=== PATIENT | female | born 1980 | race Caucasian/White ===

== ENCOUNTER 2017-04-28 20:55 | Emergency (ER) | payer OTHER ==
[2017-04-28 21:56] VITALS: BP 118/57
--- NOTE | 2017-04-28 22:03 | UC ---
Abdominal Pain Female HPI - HPI Summary HPI Summary: Pt presents with c/o of abdominal pain, fever and diarrhea X 3 days. Pt reports that she completed a 7 day prescription of Keflex 500 mg PO Q12H and began a prescription of Augmentin on 04/25/17 Q12h. Pt began having body aches, fever, abdominal pain ~ 3 days ago. Pt states that she came home from work today and took her temperature and noted it was 103 F Pt aslo reports taht she has had worsening abdominal pain and diarrhea that is "horribly smelly" - History of Current Complaint Chief Complaint: UCGI Stated Complaint: DIARRHEA FEVER HEADACHE Time Seen by Provider: 04/28/17 21:27 Hx Obtained From: Patient Hx Last Menstrual Period: about 3 weeks ago ?: No Onset/Duration: Gradual Onset, Lasting Days, Worse Since - onset Timing: Constant Severity Initially: Mild Severity Currently: Moderate Location: Diffuse Radiates: No Character: Colicy, Cramping, Sharp Aggravating Factor(s): Food Alleviating Factor(s): Nothing Associated Signs and Symptoms: Positive: Fever, Diarrhea Allergies/Adverse Reactions: Allergies Allergy/AdvReac Type Severity Reaction Status Date / Time Clarithromycin [From Biaxin] Allergy Abdominal Verified 04/28/17 21:16 Pain Home Medications: Home Medications Amoxicillin/Clavulanate TAB* [Augmentin TAB 875*] 875 mg PO BID 04/28/17 [ History Confirmed 04/28/17] O C 1 tab PO BEDTIME 04/28/17 [History Confirmed 04/28/17] PMH/Surg Hx/FS Hx/Imm Hx Previously Healthy: Yes - Surgical History Surgical History: Yes Surgery Procedure, Year, and Place: [facility] - Family History Known Family History: Positive: Cardiac Disease - Social History Occupation: Employed Full-time Lives: With Family Alcohol Use: Occasionally Substance Use Type: None Smoking Status (MU): Never Smoked Tobacco Have You Smoked in the Last Year: No Review of Systems Constitutional: Fever, Chills, Fatigue Skin: Negative Eyes: Negative ENT: Negative Respiratory: Negative Cardiovascular: Negative Gastrointestinal: Abdominal Pain, Diarrhea Genitourinary: Negative Motor: Negative Neurovascular: Negative Musculoskeletal: Myalgia Neurological: Headache Psychological: Negative Is Patient Immunocompromised?: No All Other Systems Reviewed And Are Negative: Yes Physical Exam Triage Information Reviewed: Yes Appearance: Ill-Appearing Vital Signs: Initial Vital Signs Temp 99.4 F 04/28/17 20:59 Pulse 96 04/28/17 20:59 Resp 18 04/28/17 20:59 BP 120/50 04/28/17 20:59 Vital Signs Reviewed: Yes Eye Exam: Normal Neck exam: Normal Respiratory Exam: Normal Cardiovascular Exam: Normal Abdominal Exam: Other Abdomen Description: Positive: Other: - generalized tenderness Bowel Sounds: Positive: Present Musculoskeletal Exam: Normal Neurological Exam: Normal Psychological Exam: Normal Skin Exam: Normal Abd Pain Female Course/Dx - Course Course Of Treatment: I disdcussed withthe pt my concerns about the length of time that she has been taking antibiotics and the onset of foul smelling diarrhea and fever for possible C-difficile. I recommended that she go to the closest ER for further evaluation and testing. Pt verbalized understanding and agreed to plan of care. - Differential Dx/Diagnosis Differential Diagnosis: Diverticulitis, Other - Gastroenteritis C-Difficile Provider Diagnoses: Abdominal pain. C-Difficile- ? - Physician Notification/Consults Discussed Care of Patient With: Dr. Navarrete at [facility] - Pt accepted by Dr. Navarrete Time Discussed With Above Provider: 22:04 Discharge - Discharge Plan Condition: Stable Disposition: HOME Patient Education Materials: Fever in Adults (ED), Acute Diarrhea (ED), Abdominal Pain (ED) Referrals: Jessie Sandoval MD [Primary Care Provider] - If Needed Additional Instructions: It is recommended that you go to the closest Emergency Room for immediate evaluation. Your exam has revealed concern for an infection called Clostridium Difficile.
== END 2017-04-28 22:07 | disposition home or self-care (01) ==
LOC: UCCORT 20:55
DX: R10.9 Unspecified abdominal pain (principal); R19.7 Diarrhea, unspecified; Z88.1 Allergy status to other antibiotic agents
CPT/HCPCS: 99212; G0463

== ENCOUNTER 2017-10-15 09:05 | Emergency (ER) | payer OTHER ==
[2017-10-15 09:44] VITALS: BP 119/67
--- NOTE | 2017-10-15 09:52 | UC ---
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 HAS BEEN LIMPING - History of Current Complaint Chief Complaint: UCLowerExtremity Stated Complaint: LEFT LEG INJURY Time Seen by Provider: 10/15/17 09:11 Hx Obtained From: Patient Hx Last Menstrual Period: 09/28/17 ?: No Onset/Duration: Sudden Onset, Lasting Days - 1, Still Present Severity Initially: Moderate Severity Currently: Moderate Pain Intensity: 4 Aggravating Factor(s): Standing, Ambulation Able to Bear Weight: Yes - Allergies/Home Medications Allergies/Adverse Reactions: Allergies Allergy/AdvReac Type Severity Reaction Status Date / Time clarithromycin [From Biaxin] AdvReac Abdominal Verified 10/15/17 09:53 Pain Home Medications: Home Medications Ibuprofen [Advil] 800 mg PO ONCE PRN 10/15/17 [History Confirmed 10/15/17] Norethindrone-E.estradiol-Iron [Minastrin 24 Fe 1-20 mg-Mcg(24)] 1 chw PO DAILY 10/15/17 [History Confirmed 10/15/17] Sertraline* [Zoloft*] 200 mg PO BEDTIME 10/15/17 [History Confirmed 10/15/17] PMH/Surg Hx/FS Hx/Imm Hx Respiratory History: Asthma Psychological History: Anxiety - Surgical History Surgical History: Yes Surgery Procedure, Year, and Place: [facility] - Family History Known Family History: Positive: Cardiac Disease - Social History Alcohol Use: Occasionally Substance Use Type: None Smoking Status (MU): Never Smoked Tobacco Have You Smoked in the Last Year: No Review of Systems Constitutional: Negative Skin: Negative Eyes: Negative ENT: Negative Respiratory: Negative Cardiovascular: Negative Is Patient Immunocompromised?: No All Other Systems Reviewed And Are Negative: Yes Physical Exam Triage Information Reviewed: Yes Appearance: Well-Appearing, No Pain Distress, Well-Nourished Vital Signs: Initial Vital Signs Temp 98.9 F 10/15/17 09:33 Pulse 78 10/15/17 09:33 Resp 16 10/15/17 09:33 BP 119/67 10/15/17 09:33 Pulse Ox 99 10/15/17 09:33 Vital Signs Reviewed: Yes Eye Exam: Normal Eyes: Positive: Conjunctiva Clear ENT: Positive: Normal ENT inspection, Hearing grossly normal, Pharynx normal Neck: Positive: Supple, Nontender, No Lymphadenopathy Respiratory: Positive: Chest non-tender, Lungs clear, Normal breath sounds Cardiovascular: Positive: RRR, No Murmur, Pulses Normal Musculoskeletal: Positive: Other: - LEFT LOWER LEG : NO SWELLING, NO ERYTHEMA, + TENDERNESS DISTAL TIBIA, LEFT ANKLE, NO TEDNERENSS, NO SWELLINGN , GOOD ROM Skin Exam: Normal Diagnostics - Laboratory Diagnostic Studies Completed/Ordered: xray left lower leg : no fracture seen Lower Extremity Course/Dx - Differential Dx/Diagnosis Provider Diagnoses: CONTUSION LEFT LOWER LEG Discharge - Discharge Plan Condition: Stable Disposition: HOME Patient Education Materials: Contusion in Adults (ED) Referrals: Jessie Sandoval MD [Primary Care Provider] - 7 Days Additional Instructions: normal xray of left lower leg cont with rest, ice, elevation, take Ibuprofen 600 mg every 6 hrs as needed for pain and inflammation use crutches for few days follow up with your pcp in 7 days
--- NOTE | 2017-10-15 10:52 | RAD ---
Indication: Medial left lower leg pain after soccer injury Comparison: None. Technique: AP and lateral views left lower leg. Report: The visualized bones are adequately corticated and well aligned. There is no acute fracture, dislocation or other focal abnormality. The soft tissues appear grossly normal. IMPRESSION: Normal left lower leg radiograph. If the patient's symptoms persist, follow-up imaging is recommended.
== END 2017-10-15 11:02 | disposition home or self-care (01) ==
LOC: UCCORT 09:05
DX: S80.12XA Contusion of left lower leg, initial encounter (principal); W22.8XXA Striking against or struck by other objects, initial encounter; Y93.66 Activity, soccer; Y92.9 Unspecified place or not applicable; Z88.1 Allergy status to other antibiotic agents; F41.9 Anxiety disorder, unspecified
CPT/HCPCS: 99213; G0463

== ENCOUNTER 2018-07-10 08:07 | Emergency (ER) | payer OTHER ==
[2018-07-10] MEDS ORDERED: Ibuprofen TAB* 600 MG PO ONE (08:33)
[2018-07-10] MEDS ORDERED: Phenazopyridine TAB* 100 MG PO ONE (08:33)
[2018-07-10 08:42] VITALS: BP 137/77
--- NOTE | 2018-07-10 13:32 | UC ---
Abdominal Pain Female HPI - HPI Summary HPI Summary: 37 f with c/o abdominal pain, painful urination, buring with urination, L lower back pain x 2-3 days. no fever, chills. 1 year of frequent urination, x 10 a night. h/o catheterizatins as a child- age 8, unsure for what reason. no recent UTIs/ bladder/ kidney problems. + hematuria x 1 - History of Current Complaint Chief Complaint: UCGeneralIllness Stated Complaint: URINARY COMPLAINT Time Seen by Provider: 07/10/18 08:22 Hx Obtained From: Patient Hx Last Menstrual Period: ended 07/04/18 ?: No Onset/Duration: Sudden Onset, Lasting Days Timing: Constant Severity Initially: Moderate Severity Currently: Moderate Pain Intensity: 5 Pain Scale Used: 0-10 Numeric Location: Diffuse - lower abdomen Allergies/Adverse Reactions: Allergies Allergy/AdvReac Type Severity Reaction Status Date / Time clarithromycin [From Biaxin] AdvReac Abdominal Verified 07/10/18 08:42 Pain PMH/Surg Hx/FS Hx/Imm Hx Previously Healthy: Yes - ? catheterizations as a child - Surgical History Surgical History: Yes Surgery Procedure, Year, and Place: LEEP - Family History Known Family History: Positive: Cardiac Disease - Social History Alcohol Use: Occasionally Substance Use Type: None Smoking Status (MU): Never Smoked Tobacco Have You Smoked in the Last Year: No - Immunization History Most Recent Tetanus Shot: UTD Review of Systems All Other Systems Reviewed And Are Negative: Yes Constitutional: Positive: Fatigue Genitourinary: Positive: Dysuria, Hematuria, Frequency, Urgency, Vaginal/Penile Burning Physical Exam Triage Information Reviewed: Yes Appearance: Well-Appearing, No Pain Distress, Well-Nourished Vital Signs: Initial Vital Signs Temp 98.7 F 07/10/18 08:38 Pulse 78 07/10/18 08:38 Resp 21 07/10/18 08:38 BP 137/77 07/10/18 08:38 Pulse Ox 98 07/10/18 08:38 Vital Signs Reviewed: Yes Eyes: Positive: Conjunctiva Clear Abdomen Description: Negative: CVA Tenderness (R), CVA Tenderness (L) Musculoskeletal: Positive: Strength Intact, ROM Intact Neurological Exam: Normal Psychological Exam: Normal Skin Exam: Normal Abd Pain Female Course/Dx - Course Course Of Treatment: CT- neg for stone, UT + neg , abx given. follow up with PCP , symptoms improved after NSAIDs, pyrdium - Differential Dx/Diagnosis Provider Diagnosis: UTI (urinary tract infection) Discharge - Sign-Out/Discharge Documenting (check all that apply): Patient Departure All imaging exams completed and their final reports reviewed: Yes - Discharge Plan Condition: Good Disposition: HOME Prescriptions: Ciprofloxacin TAB* [Cipro 500 MG TAB*] 500 mg PO BID #10 tab Phenazopyridine TAB* [Pyridium 100 mg TAB*] 100 mg PO TID PRN #15 tab PRN Reason: urinary pain, spasm Patient Education Materials: Urinary Tract Infection in Women (DC) Forms: *Work Release Referrals: Jessie Sandoval MD [Primary Care Provider] - Additional Instructions: - Increase fluid intake - Pyridium for pain - Ibuprofen for pain - Go to ER with Back pain, fever - Bactrim for antibiotics for 5 days - Follow up with Dr Sandoval for sytmpoms, repeat urine testing in 1-2 weeks - Billing Disposition and Condition Condition: GOOD Disposition: Home
--- NOTE | 2018-07-12 15:48 | UC ---
- Progress Note Progress Note: 07/12/2018 Urine culture positive for E.coli. Pt Rx Ciprofloxacin PO Final reports shows sensitivity to Ciprofloxacin PO No change Fanta Cortes PA-C Course/Dx - Diagnoses Provider Diagnoses: UTI (urinary tract infection) Discharge - Sign-Out/Discharge Documenting (check all that apply): Patient Departure - d/c home All imaging exams completed and their final reports reviewed: Yes - Discharge Plan Condition: Good Disposition: HOME Prescriptions: Ciprofloxacin TAB* [Cipro 500 MG TAB*] 500 mg PO BID #10 tab Phenazopyridine TAB* [Pyridium 100 mg TAB*] 100 mg PO TID PRN #15 tab PRN Reason: urinary pain, spasm Patient Education Materials: Urinary Tract Infection in Women (DC) Forms: *Work Release Referrals: Jessie Sandoval MD [Primary Care Provider] - Additional Instructions: - Increase fluid intake - Pyridium for pain - Ibuprofen for pain - Go to ER with Back pain, fever - Bactrim for antibiotics for 5 days - Follow up with Dr Sandoval for sytmpoms, repeat urine testing in 1-2 weeks - Billing Disposition and Condition Condition: GOOD Disposition: Home
== END 2018-07-10 10:20 | disposition home or self-care (01) ==
LOC: UCEAST 08:07
DX: N39.0 Urinary tract infection, site not specified (principal); B96.20 Unspecified Escherichia coli [E. coli] as the cause of diseases classified elsewhere; Z88.1 Allergy status to other antibiotic agents
CPT/HCPCS: 74176; 81003; 84702; 87077; 87086; 87186; 99212; A9270-GY; G0463

== ENCOUNTER 2019-02-14 14:59 | Emergency (ER) | payer OTHER ==
--- OUTSIDE RECORDS SUMMARY | 2019-02-14 15:13 | XMS REPORT | Continuity of Care Document ---
:1980 External Reference #:[id number] Author Name Brina Arenas NP Address [address] [facility] [place] [address] Care Team Providers Name Role Phone Jessie Sandoval M.D. Care Team Information Glass Maker Unavailable Jessie Sandoval M.D. Primary Care Physician Unavailable Payers Date Identification Numbers Payment Provider Subscriber Effective: 2014 Policy Number: [id number] [facility] [employer] Number: [id number] [id number] PayID: [id number] [place] [address] Problems Active Problems Provider Date Vitamin D deficiency Marlen Gomez M.D. 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 Onset: 06/16/2012 Erythroleukoplakia of internal part of James Canchola M.D. Onset: 2015 mouth Recurrent major depressive episodes Jessie Sandoval M.D. Onset: 10/25/2017 Chronic interstitial cystitis Jessie Sandoval M.D. Onset: 01/17/2019 Resolved Problems Chest pain Reyna Dominguez M.D. Onset: 12/03/2011 Resolved: 09/26/2015 Adult health examination Marlen Gomez M.D. Onset: 01/03/2012 Resolved: 09/26/2015 Abdominal pain Marlen Gomez M.D. Onset: 01/03/2012 Resolved: 09/26/2015 Amnesia Marlen Gomez M.D. Onset: 01/03/2012 Resolved: 09/26/2015 Family History Date Family Member(s) Observation Comments : (age 66 Father due to ND Years) Father ND age 56, HTN, hyperlidipemia, mouth cancer Mother Anxiety Mother anxiety, depression,cervical cancer leading her hysterectomy, First Son asthma First Sister Anxiety First Sister twin sister - interstitial cystitis Paternal Grandfather prostate cancer Paternal Grandmother Parkinson's Maternal Grandfather prostate cancer Maternal Grandmother Heart disease Social History Type Date Description Comments Sex Unknown Education Highest level of education completed is a bachelor's degree Living Situation Lives with spouse, son and daughter Diet Diet is healthy and well balanced Pets Household pets include 2 cats 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 Tobacco Use Start: Unknown Patient has never smoked Smoking Status Reviewed: 02/06/19 Patient has never smoked Exercise Exercises regularly, Type/Frequency Current walks 2 miles every day - 30 minutes. Allergies, Adverse Reactions, Alerts Active Allergies Reaction Severity Comments Date Biaxin severe GI upset 03/14/2014 Inactive Allergies codeine gi upset 02/26/2009 Medications Active Medications SIG Qnty Indications Ordering Date Provider Cyclobenzaprine HCL take 1-2 60tabs Brina Carline 11/06/2018 5mg tablets by [facility]as Tablets mouth at night as needed for back spasm Tramadol HCL 1 by mouth 28tabs Brina Carline 11/06/2018 50mg Tablets every 6 hours [facility] Arenas as needed Lorazepam take 1/2 - 1 14tabs F33.9 [facility], 07/26/2018 0.5mg Tablets pill by mouth M.D. up to once daily as needed for anxiety Sertraline HCL take two 60tabs F41.9 [facility], 11/04/2014 100mg Tablets tablets by M.D. mouth every day Ortho-Cyclen (28) 1 by mouth Unknown every day 0.25-35mg-mcg Tablets Vitamin D 1 by mouth Unknown 2000Unit Capsules twice daily Vitamin B 12 Unknown 100mcg Lozenges Probiotic 1 by mouth Unknown Capsules every day Uribel one daily by Unknown 118mg Capsules mouth as needed History Medications Medrol take dose pack as 1units Brina Crowley 11/06/2018 - 4mg TBPK directed [facility] Arenas 02/06/2019 Tamiflu 1 tab by mouth 10caps Jessie Jaime 09/11/2018 - 75mg Capsules every day x10 days M.D. 11/06/2018 Proair HFA take 1-2 puffs 51gm J20.9 Katya Millan 08/12/2017 - prior to exercise MC Hernandez 07/26/2018 108(90Base) mcg/Act and as needed for Aerosol wheezing and difficulty breathing Azithromycin take two by mouth 6tabs J20.9 Katya Millan 08/12/2017 - 250mg as first dose, MC Hernandez 10/24/2017 Tablets then take one by mouth daily until gone Acetaminophen-Codein take one by mouth 20tabs J20.9 Katya Millan 08/12/2017 - e #3 every 6 hours as MC Hernandez 10/25/2017 300-30mg Tablets needed for cough. may take 2 as one dose at bedtime. Acetaminophen-Codein take one by mouth 15tabs J20.9 Katya Millan 07/22/2017 - e #3 every 6 hours as MC Hernandez 08/12/2017 300-30mg Tablets needed for cough. may take 2 as one dose at bedtime. Prednisone take 2 by mouth as 8tabs J20.9 Katya Millan 07/22/2017 - 20mg one dose daily MC Hernandez 08/12/2017 Tablets until gone Thumb Spica Splint For left hand Use 1units Katya Millan 07/06/2017 - during the day, MC Hernandez 07/21/2017 remove at night for 2-4 weeks. Amoxicillin/Clavulan 1 by mouth twice a 20tabs J20.9 LUDIVINA Doty - ate Potassium day for 1 0days 05/26/2017 875-125mg Tablets Doxycycline Hyclate take one by mouth 14caps J01.00 Katya Millan 04/11/2017 - twice daily until MC Hernandez 04/21/2017 100mg Capsules gone Mometasone Furoate 2 sprays in each 17gm J01.00 Katya Millan 04/11/2017 - nostril once daily MC Hernandez 11/06/2018 50mcg/Act Suspension Amoxicillin/Clavulan 1 by mouth twice a 20tabs J20.9 Bela Mcdonald. 06/29/2016 - ate Potassium day for 1 0days Doug Servin 04/10/2017 875-125mg Tablets Diflucan 1 by mouth now. 4tabs J20.9 Renetta Stevens, [employer] 06/29/2016 - 200mg repeat in one week 05/26/2017 Tablets as necessary. Physical Therapy treatment and M54.5 Mar Good, 02/19/2016 - evaluation of Afnp-C 06/28/2016 lower back pain Mouthwash/Gargle equal parts 8Oz B00.2 Mar Good, 12/17/2015 - viscous lidocaine, [facility] 12/22/2015 Liquid maalox and liquid benadryl; 5-10 mls swish, gargle and spit q 4 hrs prn for mouth pain Valtrex 1 po bid x 4 days 8tabs B00.2 Mar Good, 12/17/2015 - 500mg Tablets [facility] 12/21/2015 Doxycycline Hyclate 1 tab twice a day 28tabs J01.90 Jessie Sandoval, 2015 - x 14 days M.D. 11/17/2015 100mg Tablets Fluconazole one tab by mouth 2tabs J01.90 Jessie Sandoval, 09/26/2015 - 150mg once, may repeat M.D. 11/17/2015 Tablets in five days Amoxicillin/Clavulan 1 by mouth twice a 20tabs Russell Donahue M.D. 2015 - ate Potassium day for 1 0days 09/26/2015 875-125mg Tablets Work Excuse pt may return to V43.62x Russell Donahue M.D. 07/15/2015 - work 07/21-07/24. D 09/26/2015 half time only. Work Excuse please excuse 488.82 Russell Donahue M.D. 07/08/2015 - 06/25-07/09/15 07/15/2015 Work Excuse please excuse V43.62x Russell Donahue M.D. 07/02/2015 - 07/09-07/24/15 D 07/15/2015 Orphenadrine Citrate 1 by mouth twice a 30tabs V43.62x Russell Donahue M.D. 09/2014 - ER day as needed for D 08/05/2015 100mg Tablets ER muscle spasm 12HR Naproxen 1 by mouth twice a 30tabs V43.62x Russell Donahue M.D. 07/02/2015 - 500mg day D 08/05/2015 Tablets Lorazepam 1/2 to 1 tab by 60tabs 300.00 Rocher[facility] 03/28/2015 - 1mg Tablets mouth tid prn KAITY HealyP 08/05/2015 anxiety, panic Cheratussin ac 5 milliliters 50ml 786.2 Rochert 12/30/2014 - every [address] [facility] 03/28/2015 100-10mg/5ML Syrup needed cough Tamiflu 1 by mouth twice a 10caps 488.82 Russell Donahue M.D. 08/30/2014 - 75mg Capsules day for 5 days 12/30/2014 Work Excuse please excuse 488.82 Russell Donahue M.D. 08/30/2014 - 08/28-08/30/14 12/30/2014 Diflucan 1 po times 1 day, 2tabs Renetta Stevens [facility] 03/15/2014 - 150mg may repeat in 5-7d 08/30/2014 Tablets Amoxicillin 1 po tid x 10d 30caps 461.[address] [facility] 03/14/2014 - 500mg 08/30/2014 Capsules Ventolin HFA 2 puffs qd-qid sample 461.[address] [facility] 03/14/2014 - 03/28/2015 108(90Base) mcg/Act Aerosol Septra DS 1 po bid 10tabs James Hanson 01/01/2014 - 800-160mg Doug Canchola 02/05/2014 Tablets Vitamin D 1 po qd [facility] 11/13/2013 - [facility] 12/30/2014 Tablets [place] Zofran 1 po q 12h 30tabs [facility] 11/06/2013 - 8mg Tablets [facility] 02/05/2014 [place] Prilosec 1 po qd 90caps Family [facility] 11/06/2013 - 20mg [facility] 02/05/[address] Gregory Hydrocodone/Acetamin 1 po qid prn pain 60tabs [facility] 11/06/2013 - ophen [facility] 02/05/2014 5-325mg Tablets [place] Biaxin take one tablet po 20tabs 466.0 Caitlin 10/29/2013 - 250mg Tablets bid x [address] [facility] 11/08/2013 finish all medication Zoloft 2 by mouth every 60tabs 300.00 Russell Donahue M.D. 06/16/2012 - 100mg Tablets day 11/04/2014 Amoxicillin/Clavulan 1 po bid 20tabs 461.0 Renetta Stevens, [facility] 06/01/2012 - ate Potassium 06/16/2012 875-125mg Tablets Bentyl 1 po every 8 hours 30caps 789.00 Marlen Gomez, 01/03/2012 - 10mg Capsules as needed Doug 07/03/2012 [facility] 02/26/2009 - Misc [facility] 12/26/2009 [place] Zoloft 1 po qd 30tabs [facility] 02/26/2009 - 50mg Tablets [facility] 12/26/2009 [place] 1 po qd [facility] 02/26/2009 - Multiviatamin [facility] 12/03/2011 [place] Expecta PO qd [facility] 02/26/2009 - Capsules [facility] 12/26/2009 [place] Dha/Epa 1 qd Unknown - Liquid Gels 12/03/2011 Zofran 1 po q6h prn 12tabs Unknown - 4mg Tablets 12/03/2011 Ortho Tri-Cyclen take as directed Unknown - 06/29/2016 0.18/0.215/0.25 mg-3 Tablets Zoloft 1 po qd 30tabs Unknown - 50mg Tablets 06/16/2012 Abilify 1 po qd Unknown - 2mg Tablets 10/29/2013 Strattera 1 po qd Unknown - 100mg 02/05/2014 Capsules Albuterol 2 puffs every 4 Unknown - Powder hours prn 02/05/2014 Vitamin Pack daily Unknown - 07/21/2017 Vesicare 1 by mouth every Unknown - 5mg Tablets day 02/06/2019 Giovanni take one tablet by Unknown - 25mg mouth every 02/06/2019 Tablets ER 24HR morning and evening (incontinence) Vital Signs Date Vital Result Comment 02/06/2019 1:50pm BP Systolic 122 mmHg BP Diastolic 64 mmHg Heart Rate 68 /min Body Temperature 98.2 F Respiratory Rate 16 /min Height 69 inches 5'9" Weight 171.00 lb BMI (Body Mass Index) 25.2 kg/m2 11/06/2018 10:37am BP Systolic 118 mmHg BP Diastolic 68 mmHg Heart Rate 68 /min Body Temperature 97.7 F Respiratory Rate 20 /min Weight 169.00 lb 07/26/2018 9:24am BP Systolic 120 mmHg BP Diastolic 60 mmHg Heart Rate 80 /min Body Temperature 98.1 F Respiratory Rate 16 /min Height 69 inches 5'9" Weight 167.00 lb BMI (Body Mass Index) 24.7 kg/m2 10/25/2017 3:32pm BP Systolic 122 mmHg BP Diastolic 70 mmHg Heart Rate 68 /min Respiratory Rate 16 /min Weight 169.00 lb 08/12/2017 3:33pm BP Systolic 122 mmHg BP Diastolic 72 mmHg Heart Rate 85 /min Body Temperature 98.1 F O2 % BldC Oximetry 98 % Weight 169.00 lb 07/22/2017 9:09am BP Systolic 92 mmHg BP Diastolic 50 mmHg Heart Rate 84 /min Body Temperature 99.0 F Height 69 inches 5'9" Weight 168.25 lb With Boots BMI (Body Mass Index) 24.8 kg/m2 07/06/2017 11:30am BP Systolic 122 mmHg BP Diastolic 80 mmHg Heart Rate 66 /min Body Temperature 97.9 F Height 69 inches 5'9" Weight 163.00 lb BMI (Body Mass Index) 24.1 kg/m2 05/26/2017 3:24pm BP Systolic 100 mmHg BP Diastolic 70 mmHg Heart Rate 68 /min Body Temperature 98.1 F Respiratory Rate 18 /min Height 69 inches 5'9" Weight 166.00 lb BMI (Body Mass Index) 24.5 kg/m2 04/11/2017 2:58pm BP Systolic 108 mmHg BP Diastolic 80 mmHg Heart Rate 84 /min Body Temperature 97.9 F Height 69 inches 5'9" Weight 165.50 lb BMI (Body Mass Index) 24.4 kg/m2 06/29/2016 2:19pm BP Systolic 112 mmHg BP Diastolic 60 mmHg Heart Rate 84 /min Body Temperature 98.4 F Height 69 inches 5'9" Weight 156.50 lb BMI (Body Mass Index) 23.1 kg/m2 02/19/2016 4:41pm BP Systolic 110 mmHg BP Diastolic 62 mmHg Heart Rate 84 /min Body Temperature 98.9 F Height 69 inches 5'9" Weight 180.38 lb BMI (Body Mass Index) 26.6 kg/m2 12/26/2015 10:05am BP Systolic 100 mmHg BP Diastolic 60 mmHg Heart Rate 72 /min Body Temperature 97.9 F Respiratory Rate 16 /min Height 69 inches 5'9" Weight 176.00 lb BMI (Body Mass Index) 26.0 kg/m2 12/17/2015 10:59am BP Systolic 100 mmHg BP Diastolic 60 mmHg Heart Rate 60 /min Body Temperature 97.9 F Respiratory Rate 16 /min Height 69 inches 5'9" Weight 173.00 lb BMI (Body Mass Index) 25.5 kg/m2 11/17/2015 4:21pm BP Systolic 110 mmHg BP Diastolic 70 mmHg Heart Rate 60 /min Body Temperature 98.0 F Respiratory Rate 18 /min Height 69 inches 5'9" Weight 173.00 lb BMI (Body Mass Index) 25.5 kg/m2 09/26/2015 11:04am BP Systolic 120 mmHg BP Diastolic 70 mmHg Heart Rate 64 /min Body Temperature 98.2 F Respiratory Rate 16 /min Height 69 inches 5'9" Weight 175.00 lb BMI (Body Mass Index) 25.8 kg/m2 08/05/2015 1:47pm BP Systolic 114 mmHg BP Diastolic 56 mmHg Heart Rate 72 /min Body Temperature 97.7 F Respiratory Rate 16 /min Height 69 inches 5'9" Weight 176.00 lb BMI (Body Mass Index) 26.0 kg/m2 07/15/2015 1:54pm BP Systolic 120 mmHg BP Diastolic 80 mmHg Heart Rate 72 /min Body Temperature 98.0 F Respiratory Rate 18 /min Height 69 inches 5'9" Weight 176.00 lb BMI (Body Mass Index) 26.0 kg/m2 07/08/2015 12:55pm BP Systolic 120 mmHg BP Diastolic 70 mmHg Heart Rate 74 /min Body Temperature 98.1 F Respiratory Rate 16 /min Height 69 inches 5'9" 07/02/2015 1:57pm BP Systolic 110 mmHg BP Diastolic 64 mmHg Heart Rate 64 /min Body Temperature 98.1 F Respiratory Rate 16 /min Height 69 inches 5'9" Weight 175.00 lb BMI (Body Mass Index) 25.8 kg/m2 03/28/2015 3:21pm BP Systolic 104 mmHg BP Diastolic 50 mmHg Heart Rate 64 /min Respiratory Rate 16 /min Height 69 inches 5'9" Weight 169.00 lb BMI (Body Mass Index) 25.0 kg/m2 12/30/2014 1:47pm BP Systolic 114 mmHg BP Diastolic 64 mmHg Heart Rate 60 /min Body Temperature 98.1 F Respiratory Rate 16 /min Height 69 inches 5'9" Weight 162.00 lb BMI (Body Mass Index) 23.9 kg/m2 11/11/2014 11:36am BP Systolic 100 mmHg BP Diastolic 64 mmHg Heart Rate 68 /min Body Temperature 97.7 F Respiratory Rate 16 /min Height 69 inches 5'9" Weight 156.00 lb BMI (Body Mass Index) 23.0 kg/m2 08/30/2014 11:34am BP Systolic 110 mmHg BP Diastolic 60 mmHg Heart Rate 76 /min Body Temperature 98.7 F Respiratory Rate 16 /min Height 69 inches 5'9" Weight 163.00 lb BMI (Body Mass Index) 24.1 kg/m2 03/14/2014 1:46pm BP Systolic 122 mmHg BP Diastolic 76 mmHg Heart Rate 72 /min Body Temperature 98.4 F Respiratory Rate 16 /min Height 69 inches 5'9" Weight 157.25 lb BMI (Body Mass Index) 23.2 kg/m2 02/05/2014 4:44pm BP Systolic 120 mmHg BP Diastolic 62 mmHg Heart Rate 72 /min Body Temperature 98.6 F Respiratory Rate 15 /min Height 69 inches 5'9" Weight 163.00 lb BMI (Body Mass Index) 24.1 kg/m2 01/01/2014 10:05am BP Systolic 120 mmHg BP Diastolic 70 mmHg Heart Rate 64 /min Body Temperature 97.2 F Respiratory Rate 18 /min Height 69 inches 5'9" Weight 160.00 lb BMI (Body Mass Index) 23.6 kg/m2 11/13/2013 4:25pm BP Systolic 108 mmHg BP Diastolic 70 mmHg Heart Rate 84 /min Body Temperature 97.5 F Height 69 inches 5'9" Weight 151.50 lb BMI (Body Mass Index) 22.4 kg/m2 11/08/2013 4:17pm BP Systolic 118 mmHg BP Diastolic 60 mmHg Heart Rate 66 /min Body Temperature 98.5 F Respiratory Rate 16 /min Height 69 inches 5'9" 11/06/2013 4:01pm BP Systolic 146 mmHg BP Diastolic 98 mmHg Heart Rate 102 /min Body Temperature 97.8 F Height 69 inches 5'9" Weight 152.38 lb BMI (Body Mass Index) 22.5 kg/m2 10/29/2013 10:17am BP Systolic 110 mmHg BP Diastolic 70 mmHg Heart Rate 80 /min Body Temperature 98.1 F Respiratory Rate 20 /min O2 % BldC Oximetry 98 % Height 69 inches 5'9" Weight 152.00 lb BMI (Body Mass Index) 22.4 kg/m2 12/08/2012 3:52pm BP Systolic 110 mmHg BP Diastolic 68 mmHg Heart Rate 84 /min Body Temperature 97.6 F Height 69 inches 5'9" Weight 154.25 lb BMI (Body Mass Index) 22.8 kg/m2 07/03/2012 9:35am BP Systolic 120 mmHg BP Diastolic 72 mmHg Heart Rate 72 /min Body Temperature 98.4 F Height 69 inches 5'9" Weight 160.00 lb BMI (Body Mass Index) 23.6 kg/m2 06/16/2012 10:37am BP Systolic 102 mmHg BP Diastolic 68 mmHg Heart Rate 60 /min Body Temperature 97.4 F Height 69 inches 5'9" Weight 156.00 lb BMI (Body Mass Index) 23.0 kg/m2 06/01/2012 11:13am BP Systolic 100 mmHg BP Diastolic 70 mmHg Heart Rate 80 /min Body Temperature 98.2 F Height 69 inches 5'9" Weight 164.00 lb BMI (Body Mass Index) 24.2 kg/m2 01/03/2012 12:23pm BP Systolic 98 mmHg BP Diastolic 58 mmHg Heart Rate 66 /min Body Temperature 98.3 F Height 69 inches 5'9" Weight 165.00 lb BMI (Body Mass Index) 24.4 kg/m2 Right Visual Acuity Distance 20/20 Left Visual Acuity Distance 20/20 12/03/2011 3:47pm BP Systolic 120 mmHg BP Diastolic 70 mmHg Heart Rate 68 /min Body Temperature 97.8 F Height 69 inches 5'9" Weight 165.00 lb BMI (Body Mass Index) 24.4 kg/m2 12/26/2009 2:57pm BP Systolic 120 mmHg BP Diastolic 60 mmHg Heart Rate 80 /min Body Temperature 98.5 F Respiratory Rate 20 /min Weight 168.00 lb 12/26/2009 2:49pm BP Systolic 112 mmHg BP Diastolic 58 mmHg Heart Rate 80 /min Body Temperature 99.3 F Respiratory Rate 12 /min Weight 110.00 lb Results Test Date Facility Test Result H/L Range Note Ua - Micro (a) 07/26/2018 [facility] Appearance clear (607)- - Color yellow Glucose, Urine (Fma/CMC/CTX) negative Bilirubin negative Ketones trace # SP Grav 1.020 Blood negative PH 5.5 Protein negative Urobil 0.2 Nitrite negative Leukocytes (a/CMC/[facility]) small # Hyaline - /Lpf # Granular - /Lpf # WBC (a,[facility]) 8-10 # RBC 0-1 # Mucus - /Lpf # Epith few /Lpf # Bacteria 3+ /Hpf # Amorphous - /Lpf # Crystals, Fluid (a/CMC/CTX) - # Urine Culture And 07/26/2018 [facility] [place] Culture SEE RESULT BELOW 1, 2 Sensitivities Poc Urinalysis 07/10/2018 [facility] [place] Poc Glucose, Negative Negative Urine Poc Bilirubin, Urine Negative Negative Poc Ketone, Urine Negative Negative Poc Specific Lynn, Urine 1.020 N 1.010-1.030 Poc Blood, Urine 3+ Abnormal Negative Poc pH, Urine 7.0 N 5-9 Poc Protein, Urine 1+ Abnormal Negative Poc Urobilinogen, Urine 0.2 Negative Poc Nitrite, Urine Positive Abnormal Negative Poc Leukocytes, Urine 3+ Abnormal Negative Poc Color, Urine Dark yellow Poc Clarity, Urine Cloudy 3 Urine Culture And 07/10/2018 [facility] [place] Urine SEE RESULT 4, 5 Sensitivities Culture BELOW Laboratory test 07/10/2018 [facility] Poc Negative Negative 6 finding , Urine CBC Electronic a 05/08/2018 Vega Robby([facility]) WBC 4.7 x10^3/UL 4.0- 10.0 RBC 4.39 x10^6/UL 3.93-6.00 HGB 13.5 g/dL 12.0-17.0 HCT 40 % 35-50 MCV 90.0 fL 80.0-95.0 MCH 30.8 pg 25.6-32.2 MCHC 34.2 g/dL 32.2-36.0 RDW-CV 12.0 % 11.6-14.4 PLT 201 x10^3/UL 163-400 MPV 9.3 fL Low 9.4-12.4 Malachi# 2.73 x10^3/UL 1.56-6.13 Lymph# 1.52 x10^3/UL 1.18-3.74 [place]# 0.32 x10^3/UL 0.24-0.82 Eos # 0.1 x10^3/UL 0.0-0.5 Baso # 0.03 x10^3/UL 0.01-0.08 Malachi% 57.6 % 34.0-70.0 Lymph % 32.1 % 20.0-52.0 [place]% 6.8 % 5.0-12.0 Eos% 2.7 % 0.7-7.0 Baso% 0.6 % 0.1-1.2 Lipid Profile 05/08/2018 Gary Robby(fma) Cholesterol 196 mg/dL 120- 200 Triglycerides 159 mg/dL 30-200 HDL Cholesterol 61 mg/dL 30-85 LDL (Calculated) 103 CALC 0-129 VLDL Cholesterol 32 mg/dL 0-50 HDL Risk Factor 3.2 CALC 0.0-4.4 Comprehensive Metabolic 05/08/2018 Gary Robby(fma) Sodium 136 mEq/L 134-149 Prof Potassium 5.0 mEq/L 3.6-5.5 Chloride 102 mEq/L 94-112 Carbon Dioxide 26 mEq/L 21-32 Glucose 90 mg/dL 70-105 BUN 15 mg/dL 6-26 Creatinine 1.1 mg/dL 0.6-1.4 BUN/Creat Ratio 13.6 CALC 8.0-36.0 Calcium 9.8 mg/dL 8.6-10.2 Total Protein 7.0 g/dL 6.4-8.3 Albumin 4.9 g/dL 3.8-5.5 Globulin 2.1 g/dL 2.0-4.8 A/G Ratio 2.3 CALC 0.6-2.3 Alk. Phosphatase 46 U/L 30-110 Alt (SGPT) 18 U/L 7-35 Ast (Sgot) 22 U/L 5-34 Total Bilirubin 0.4 mg/dL 0.2-1.3 GFR Non- 60 ml/min/1.73m^ >=60 GFR >60 ml/min/1.73m^ >=60 GC/Chlamydia Amplified 12/14/2017 [facility] Chlamydia trachomatis Negative Negative Rna Rna Neisseria gonorrhoeae (GC) Rna Negative Negative Comprehensive Metabolic 12/26/2015 Vega Robby(fma) Sodium 142 mEq/L 134-149 Prof Potassium 4.5 mEq/L 3.6-5.5 Chloride 99 mEq/L 94-112 Carbon Dioxide 30 mEq/L 21-32 Glucose 83 mg/dL 70-105 BUN 18 mg/dL 6-26 Creatinine 0.8 mg/dL 0.6-1.4 BUN/Creat Ratio 22.5 CALC 8.0-36.0 Calcium 9.5 mg/dL 8.6-10.2 Total Protein 7.3 g/dL 6.4-8.3 Albumin 4.4 g/dL 3.8-5.5 Globulin 2.9 g/dL 2.0-4.8 A/G Ratio 1.5 CALC 0.6-2.3 Alk. Phosphatase 58 U/L 30-110 Alt (SGPT) 22 U/L 7-35 Ast (Sgot) 26 U/L 5-34 Total Bilirubin 0.3 mg/dL 0.2-1.3 GFR Non- >60 ml/min/1.73m^ >=60 GFR >60 ml/min/1.73m^ >=60 HIV 1/O/2 Ag/AB 12/26/2015 [facility] HIV Screen 4th Non Reactive Non Reactive 7 Prelim [address] [facility] [address] [address] Sup (607)- - Laboratory test 12/26/2015 Vega Robby(fma) Ferritin 15 ng/mL 6-115 finding Vitamin D25 57 30-100 Vitamin B-12 427 pg/mL 230-1050 Folate Level >20.00 ng/mL High 3.00-16.00 Complete Blood Count 12/26/2015 Vega Robby(fma) WBC 7.4 x10^3/UL 3.6 -9.6 RBC 4.24 x10^6/UL 3.90-5.70 HGB 13.5 g/dL 12.1-17.2 HCT 40 % 36-50 MCV 95.0 fL 82.2-97.4 MCH 31.9 pg 27.6-33.3 MCHC 33.6 g/dL 33.0-35.5 RDW 12.4 % 11.6-13.7 PLT 222 x10^3/UL 150-400 MPV 7.4 fL 7.4-10.4 Gran # 5.5 x10^3/UL 1.5-7.2 Lymph# 1.7 x10^3/UL 0.7-4.9 [place]# 0.2 x10^3/UL 0.1-0.9 Gran % 72.8 % 42.2-75.2 Lymph % 23.4 % 20.5-51.1 [place]% 3.8 % 1.7-9.3 Complete Blood Count 09/26/2015 Gary Everett([facility]) WBC 5.8 x10^3/UL 3.6 -9.6 RBC 4.14 x10^6/UL 3.90-5.70 HGB 13.4 g/dL 12.1-17.2 HCT 39 % 36-50 MCV 93.0 fL 82.2-97.4 MCH 32.2 pg 27.6-33.3 MCHC 34.5 g/dL 33.0-35.5 RDW 12.3 % 11.6-13.7 PLT 213 x10^3/UL 150-400 MPV 7.4 fL 7.4-10.4 Gran # 4.1 x10^3/UL 1.5-7.2 Lymph# 1.5 x10^3/UL 0.7-4.9 [place]# 0.2 x10^3/UL 0.1-0.9 Gran % 68.9 % 42.2-75.2 Lymph % 27.2 % 20.5-51.1 [place]% 3.9 % 1.7-9.3 Comprehensive Metabolic 09/26/2015 Gary Everett(a) Sodium 139 mEq/L 134-149 Prof Potassium 4.7 mEq/L 3.6-5.5 Chloride 102 mEq/L 94-112 Carbon Dioxide 28 mEq/L 21-32 Glucose 93 mg/dL 70-105 BUN 12 mg/dL 6-26 Creatinine 0.8 mg/dL 0.6-1.4 BUN/Creat Ratio 15.0 CALC 8.0-36.0 Calcium 9.6 mg/dL 8.6-10.2 Total Protein 6.6 g/dL 6.4-8.3 Albumin 3.9 g/dL 3.8-5.5 Globulin 2.7 g/dL 2.0-4.8 A/G Ratio 1.4 CALC 0.6-2.3 Alk. Phosphatase 57 U/L 30-110 Alt (SGPT) 14 U/L 7-35 Ast (Sgot) 18 U/L 5-34 Total Bilirubin 0.2 mg/dL 0.2-1.3 GFR Non- >60 ml/min/1.73m^ >=60 GFR >60 ml/min/1.73m^ >=60 Laboratory test 09/26/2015 V[facility] Robby(a) TSH 1.02 mIU/L 0.50-6.00 finding Influenza A&B-[facility] 08/30/2014 [facility] Influenza A POS # (607)- - Influenza B NEG Ua - Micro ([facility]) 01/01/2014 [facility] Appearance SLT CLOUDY (607)- - Color ORANGE Glucose NEG Bilirubin NEG Ketones NEG SP Grav 1.020 Blood TRACE-INTACT # PH 7.0 Protein NEG Urobil 0.2 Nitrite NEG Leukocytes (a/[facility]) MOD # Hyaline - /Lpf Granular - /Lpf WBC ([facility]) >100 # RBC 15-18 # Mucus - /Lpf Epith FEW /Lpf # Bacteria 1-2+ /Hpf # Amorphous - /Lpf Crystals, Fluid (Fma/CMC/CTX) - Z#Comments - Surgical Pathology 11/21/2013 [facility] [place] DATE: 11/22/ <SEE NOTE> Clotest 11/21/2013 [facility] [place] Clotest (SEE NOTE) 9 Laboratory test 11/06/2013 [facility] Robby(a) Amylase, Serum 102 U/L 20 -105 finding Comprehensive 11/06/2013 [facility] Robby(a) Sodium 141 mEq/L 134-149 Metabolic Prof Potassium 5.2 mEq/L 3.6-5.5 Chloride 102 mEq/L 94-112 Carbon Dioxide 27 mEq/L 21-32 Glucose 90 mg/dL 70-105 BUN 15 mg/dL 6-26 Creatinine 1.0 mg/dL 0.6-1.4 BUN/Creat Ratio 15.0 CALC 8.0-36.0 Calcium 10.2 mg/dL 8.6-10.2 Total Protein 7.6 g/dL 6.3-8.1 Albumin 5.1 g/dL 3.8-5.5 Globulin 2.5 g/dL 2.0-4.8 A/G Ratio 2.0 CALC 0.6-2.3 Alk. Phosphatase 80 U/L 30-110 Alt (SGPT) 20 U/L 7-35 Ast (Sgot) 21 U/L 5-34 Total Bilirubin 0.3 mg/dL 0.2-1.3 Laboratory test 11/06/2013 [facility] C-Reactive 4.0 mg/L 0.0-5.0 10 finding 28 [facility] [place] [address] [phone] CBC Electronic 11/06/2013 [facility] WBC 9.1 3.6-9.6 ([facility]) (607)- - RBC 4.64 3.90-5.70 Hemoglobin (Fma/CMC/CTX) 14.6 g/dL 12.1 - 17.2 Hematocrit (Fma/CMC/CTX) 43.0 % 36.1 - 50.3 Platelets 341 10^3/ul 150-400 Lymph% 26.0 % 17.0-48.0 Mixed% 5.2 Neutrophils % 68.8 Mean Corpuscular Vol 93 82.2-97.4 Mean Corpuscular Hemoglobin 31.6 27.6-33.3 Mean Corpuscular Hemo Concen 34.0 32.0-36.0 RDW 10.6 Low 11.6-13.7 Mean Platelet Volume 6.1 5.5-11.0 Ua - Micro (Fma) 11/06/2013 [facility] Appearance cloudy (607)- - Color yellow Glucose - Bilirubin - Ketones - SP Grav 1.020 Blood trace-intact # PH 7.5 Protein - Urobil 1.0 Nitrite - Leukocytes (Fma/CMC/[facility]) trace # Hyaline - /Lpf Granular - /Lpf WBC (Fma,[facility]) 2-3 RBC 0-1 Mucus - /Lpf Epith few /Lpf Bacteria trace /Hpf Amorphous - /Lpf Crystals, Fluid (Fma/CMC/CTX) - Z#Comments - Urine (Fma) 11/06/2013 [facility] SP Grav 1.020 (607)- - Urine, (Fma/[facility]/CTX) neg CBC Auto Diff 11/05/2013 [facility] White Blood Count 9.5 10^3/uL 4.8-10.8 Red Blood Count 4.58 10^6/uL 4.0-5.4 Hemoglobin 14.5 g/dL 12.0-16.0 Hematocrit 41 % 35-47 Mean Corpuscular Volume 90 fL 80-97 Mean Corpuscular Hemoglobin 32 pg High 27-31 Mean Corpuscular HGB Conc 35 g/dL 31-36 Red Cell Distribution Width 12 % 10.5-15 Platelet Count 297 10^3/uL 150-450 Mean Platelet Volume 8 um3 7.4-10.4 Abs Neutrophils 5.3 10^3/uL 1.5-7.7 Abs Lymphocytes 2.2 10^3/uL 1.0-4.8 Abs Monocytes 0.4 10^3/uL 0-0.8 Abs Eosinophils 1.6 10^3/uL High 0-0.6 Abs Basophils 0 10^3/uL 0-0.2 Abs Nucleated RBC 0.01 10^3/uL Laboratory test finding 11/05/2013 [facility] Serum Negative Negative 11 Manual Differential 11/05/2013 [facility] Neutrophil % 57 % 38-83 Lymphocytes % 30 % 25-47 Monocytes % 3 % 0-13 Eosinophils % 10 % High 0-6 RBC Morphology Normal Normal Urinalysis 11/05/2013 [facility] Urine Color Yellow Urine Appearance Clear Urine Specific Lynn 1.016 1.010-1.030 Urine Esterase 1+ Abnormal Negative Urine Nitrate Negative Negative Urine Urobilinogen Negative E.U./dL Negative Urine Protein Negative mg/dL Negative Urine pH 7.5 5-9 Urine Blood Negative Negative Urine Ketones Negative mg/dL Negative Urine Bilirubin Negative Negative Urine Glucose Negative mg/dL Negative Urine Microscopic 11/05/2013 [facility] Urine WBC 1+ (<10 /hpf) None Seen Urine RBC None Seen None Seen Urine Epithelial Cells 2+ Squamous /hpf None Seen Bacteria Urine None Seen None Seen Urine Culture And Sensitivities 11/05/2013 [facility] Urine Culture (SEE NOTE) 12 Comp Metabolic Panel 11/05/2013 [facility] Sodium 135 mmol/L 133-145 Potassium 3.9 mmol/L 3.7-5.6 Chloride 101 mmol/L 101-111 Co2 Carbon Dioxide 28 mmol/L 22-32 Anion Gap 6 mmol/L 2-11 Glucose 82 mg/dL 70-100 Blood Urea Nitrogen 18 mg/dL 6-24 Creatinine 0.88 mg/dL 0.51-0.95 BUN/Creatinine Ratio 20.5 High 8-20 Calcium 8.9 mg/dL 8.6-10.3 Total Protein 6.3 g/dL Low 6.4-8.9 Albumin 3.8 g/dL 3.2-5.2 Globulin 2.5 g/dL 2-4 Albumin/Globulin Ratio 1.5 1-3 Total Bilirubin 0.20 mg/dL 0.2-1.0 Alkaline Phosphatase 62 U/L 34-104 Alt 12 U/L 7-52 Ast 15 U/L 13-39 Egfr Non- 75.4 >60 Egfr 97.0 >60 13 Laboratory test finding 11/05/2013 [facility] Amylase 57 U/L 29-103 Lipase 18 U/L 11.0-82.0 C Reactive Protein 5.38 mg/L High < 5.00 14 CBC Electronic ([facility]) 12/08/2012 [facility] WBC 6.0 3.6-9.6 (607)- - RBC 4.30 3.90-5.70 Hemoglobin (Fma/CMC/CTX) 13.6 g/dL 12.1 - 17.2 Hematocrit (a/CMC/CTX) 40.1 % 36.1 - 50.3 Platelets 263 10^3/ul 150-400 Lymph% 35.1 20.5-51.1 Mixed% 6.5 Neutrophils % 58.4 Mean Corpuscular Vol 93 82.2-97.4 Mean Corpuscular Hemoglobin 31.7 27.6-33.3 Mean Corpuscular Hemo Concen 33.9 32.0-36.0 RDW 11.8 11.6-13.7 Mean Platelet Volume 6.4 Low 6.5-11.0 Ua - Micro ([facility]) 12/08/2012 [facility] Appearance CLEAR (607)- - Color YELLOW Glucose NEG Bilirubin NEG Ketones 15MG/DL # SP Grav 1.025 Blood SMALL # PH 6.0 Protein NEG Urobil 0.2 Nitrite NEG Leukocytes (a/CMC/[facility]) NEG Hyaline - /Lpf Granular - /Lpf WBC (Fma,[facility]) 1-2 # RBC 5-8 # Mucus SM AMT /Lpf # Epith MOD AMT /Lpf # Bacteria 1+ /Hpf # Amorphous - /Lpf Crystals, Fluid (Fma/CMC/CTX) - Z#Comments SEE COMMENTS 15 Laboratory test finding 01/03/2012 V[facility] Robby(a) TSH 1.57 mIU/L 0.50-6.00 B12 546 pg/mL 230-1050 Laboratory test 01/03/2012 [facility] Vitamin D, 25 41.1 30.0-100.0 16 finding 28 [facility] Oh ng/mL [place], [place] [id number] [phone] Celiac Disease 01/03/2012 [facility] Deamidated 4 units 0-19 17 Comp PNL 28 [facility] Gliadin Abs, [place] [address] IgA [phone] Deamidated Gliadin Abs, IgG 4 units 0-19 18 t-Transglutaminase (tTG) IgA <2 U/mL 0-3 19 t-Transglutaminase (tTG) IgG <2 U/mL 0-5 20 Endomysial Antibody IgA Negative Negative Immunoglobulin A, Qn, Serum 208 mg/dL 70-400 Ua - Non Micro (Fma) 01/03/2012 [facility] Appearance CLEAR (607)- - Color YELLOW Glucose, Urine (Fma/CMC/CTX) NEG Bilirubin NEG Ketones NEG SP Grav 1.015 Blood MODERATE # Menses PH 7.0 Protein NEG Urobil 0.2 Nitrite NEG Leukocytes (Fma/CMC/[facility]) NEG Comprehensive Metabolic 12/16/2011 [facility](fma) Albumin 4.2 g/dL 3.8-5.5 Prof Alk. Phos. 57 U/L 30-110 Alt (SGPT) 25 U/L 7-35 Ast (Sgot) 23 U/L 5-34 BUN 16 mg/dL 6-26 Calcium 9.4 mg/dL 8.6-10.2 Chloride 97 mEq/L 94-112 Creatinine 1.0 mg/dL 0.6-1.4 Carbon Dioxide 25 mEq/L 21-32 Glucose 75 mg/dL 70-105 Sodium 135 mEq/L 134-149 Total Bilirubin 0.4 mg/dL 0.2-1.3 Total Protein 6.7 g/dL 6.3-8.1 Potassium 4.6 mEq/L 3.6-5.5 Globulin 2.5 g/dL 2.0-4.8 A/G Ratio 1.7 Calc 0.6-2.2 BUN/Creat Ratio 16.9 Calc 8.0-36.0 Lipid Profile 12/16/2011 Gary Everett([facility]) Cholesterol 157 mg/dL 120- 200 HDL 43 mg/dL 30-85 Triglycerides 133 mg/dL 30-200 HDL Risk Factor 3.7 CALC 0.0-4.0 LDL (Calculated) 88 CALC 0-129 VLDL (Calculated) 27 mg/dL 0-50 Laboratory test finding 12/16/2011 Gary Everett([facility]) TSH 1.40 mIU/L 0.50-6.00 CBC Electronic ([facility]) 12/16/2011 [facility] WBC 6.5 3.6-9.6 (607)- - RBC 4.43 3.90-5.70 Hemoglobin (Fma/CMC/CTX) 13.7 g/dL 12.1 - 17.2 Hematocrit (Fma/CMC/CTX) 43.1 % 36.1 - 50.3 Platelets 249 10^3/ul 150-400 Lymph% 23.8 20.5-51.1 Mixed% 6.2 Neutrophils % 70.0 Mean Corpuscular Vol 97 82.2-97.4 Mean Corpuscular Hemoglobin 31.0 27.6-33.3 Mean Corpuscular Hemo Concen 31.9 Low 32.0-36.0 RDW 13.2 11.6-13.7 Mean Platelet Volume 6.6 6.5-11.0 Comprehensive Metabolic 12/26/2009 Gary Everett([facility]) Albumin 3.5 g/dL Low 3.8-5.5 21 Prof Alk. Phos. 60 U/L 30-110 Alt (SGPT) 8 U/L 7-35 Ast (Sgot) 12 U/L 5-34 BUN 11 mg/dL 6-26 Calcium 8.9 mg/dL 8.6-10.2 Chloride 100 mEq/L 94-112 Creatinine 0.6 mg/dL 0.6-1.4 Carbon Dioxide 24 mEq/L 21-32 Glucose 72 mg/dL 70-105 Sodium 140 mEq/L 134-149 Total Bilirubin 0.2 mg/dL 0.2-1.3 Total Protein 6.1 g/dL Low 6.3-8.1 22 Potassium 4.2 mEq/L 3.6-5.5 Globulin 2.6 g/dL 2.0-4.8 A/G Ratio 1.3 Calc 0.6-2.2 BUN/Creat Ratio 16.9 Calc 8.0-36.0 Laboratory test finding 12/26/2009 Gary Robby(a) Amylase 78 U/L 20 -105 TSH 1.45 mIU/L 0.50-6.00 Laboratory test 12/26/2009 [facility] Lipase 44 U/L 1-64 23 finding 28 [place] [id number] [phone] Comprehensive 02/26/2009 Gary Robby(a) Albumin 4.3 g/dL 3.8-5.5 Metabolic Prof Alk. Phos. 87 U/L 30-110 Alt (SGPT) 16 U/L 7-35 Ast (Sgot) 17 U/L 5-34 BUN 23 mg/dL 6-26 Calcium 9.1 mg/dL 8.6-10.2 Chloride 99 mEq/L 94-112 Creatinine 0.8 mg/dL 0.6-1.4 Carbon Dioxide 28 mEq/L 21-32 Glucose 90 mg/dL 70-105 Sodium 138 mEq/L 134-149 Total Bilirubin 0.3 mg/dL 0.2-1.3 Total Protein 6.9 g/dL 6.3-8.1 Potassium 4.6 mEq/L 3.6-5.5 Globulin 2.6 g/dL 2.0-4.8 A/G Ratio 1.7 Calc 0.6-2.2 BUN/Creat Ratio 26.6 Calc 8.0-36.0 Laboratory test finding 02/26/2009 Gary Everett([facility]) TSH 0.89 mIU/L 0.50-6.00 Free T4 0.97 ng/dL 0.75-1.54 1 [id number] 1 aguilar urine top transport tube 2 SEE RESULT BELOW Name: LYRIC RIOS Tamara : [address]: Jessie Sandoval MD Acct: [id number] Unit: [id number] AGE: 37 Location: [facility] Re07/26/18 SEX: F Status: REG REF SPEC: [id number] [place]: 07/26/18-[address] [facility] [address]: Jessie Sandoval MD REQ: [id number] RECD: 07/26/18 STATUS: COMP _ SOURCE: URINE SPDESC: ORDERED: Urine Culture COMMENTS: [id number] aguilar urine top transport tube Urine Source: Random Procedure Result Reported Site Urine Culture Final 07/27/18- 1602 ML No Growth (<1,000 CFU/mL) * ML - Main Lab . END OF REPORT DEPARTMENT OF PATHOLOGY, [address] [place] [address] Viktor Best M.D. Director [facility] # [id number] 3 Activities Therapist: [id number] 5 SEE RESULT BELOW Name: LYRIC RIOS : [address]: Lester Cox MD Acct: [id number] Unit: [id number] AGE: 37 Location: [facility] Re07/10/18 SEX: F Status: DEP ER SPEC: [id number] [place]: 07/10/[address]: Yovana RAMSAY REQ: [id number] RECD: 07/10/18 STATUS: LOY STEELE DR: Jessie Cox MD _ SOURCE: URINE SPDESC: ORDERED: Urine Culture COMMENTS: [id number] Procedure Result Reported Site Urine Culture Final 07/12/18- 826 ML Organism 1 ESCHERICHIA COLI [place] Count >100,000 (Many) CFU/ML 1. ESCHERICHIA COLI M.I.C. RX --------- ------ Ampicillin >=32 R Cefazolin <=4 S Cefepime <=1 S Ceftriaxone <=1 S Ciprofloxacin <=0.25 S Gentamicin >=16 R Levofloxacin <=0.12 S Meropenem <=0.25 S Nitrofurantoin <=16 S Tetracycline >=16 R Pipercillin/Tazobactam <=4 S Trimethoprim/Sulfamethoxazole >=320 R Amoxicillin/Clavulanic Acid >=32 R Aztreonam <=1 S Contact the Microbiology Department for any additional antibiotic reporting. * ML - Main Lab . END OF REPORT DEPARTMENT OF PATHOLOGY, [address] [place] [address] Viktor Best M.D. Director [facility] # [id number] 6 Activities Therapist: [id number] Test Disclaimer: Positive bacteria, red blood cells, white blood cells, early , low specific gravity, and other factors may cause false positive or negative results. It is recommended to retest unexpected results within 24 to 72 hours with a serum test when applicable. If is still suspected, please repeat test after 48 to 72 hours. 7 1 sst 8 RUN DATE: 11/22/13 [facility] LAB LIVE PAGE 1 RUN TIME: [address] [place] [address] Specimen Inquiry Name: LYRIC RIOS : [address]: Jayden Mehta MD Acct: [id number] Unit: [id number] AGE: 32 Location: ENDO Re11/21/13 SEX: F Status: REG REF SPEC: [id number] [place]: 11/21/13- SUBM DR: Jayden Mehta MD REQ: [id number] RECD: 11/21/132 STATUS: MENDEZ STEELE DR: Bill Hughes MD _ ORDERED: LEVEL IV FINAL DIAGNOSIS Duodenum, biopsy: A. Duodenal mucosa with no significant pathologic abnormalities. B. No evidence of villous blunting or increased intraepithelial lymphocytes. CLINICAL HISTORY Abdominal pain, nausea and vomiting for EGD POST-OPERATIVE DIAGNOSIS Esophagus - -normal, no erosion, stomach - normal, no ulcer or gastritis, duodenum - normal bulb to third portion (biopsied). Normal EGD GROSS DESCRIPTION The specimen is received in formalin labeled [place], Biopsy Duodenum and consists of a 0.6 x 0.5 x 0.2 cm. aggregate of multiple, marsh-pink, irregular, soft tissue fragments. Submitted entirely, one cassette. Signed (signature on file) Caitlin Martinez MD 1258 END OF REPORT * ML=Testing performed at Main Lab DEPARTMENT OF PATHOLOGY, [facility] [employer] [place] [address] Viktor Best M.D. Director [facility] Permit #[id number] RUN DATE: 11/22/13 [facility] LAB LIVE PAGE 1 RUN TIME: 0734 [facility] [employer] [place], [place] [address] Specimen Inquiry Name: LYRIC RIOS : [address]: Jayden Mehta MD Acct: [id number] Unit: [id number] AGE: 32 Location: ENDO Re11/21/13 SEX: F Status: REG REF SPEC: [id number] [place]: 11/21/13-[address] [facility] [address]: Jayden Mehta MD REQ: [id number] RECD: 11/21/13-8 STATUS: COMP [facility] DR: Bill Hughes MD _ SOURCE: GAS ANTRUM SPDESC: ORDERED: Clotest Procedure Result Verified Site Clotest Final 11/22/13- 733 ML Clotest Negative END OF REPORT * ML=Testing performed at Main Lab DEPARTMENT OF PATHOLOGY, [address] [place] [address] Viktor Best M.D. Director [facility] Permit #[id number] 1sst 11 This test detects intact HCG only and is indicated for the early detection of . 12 RUN DATE: 11/07/13 [facility] LAB LIVE PAGE 1 RUN TIME: [address] [place] [address] Specimen Inquiry Name: LYRIC RIOS : [address]: Olvin Beasley DO Acct: [id number] Unit: [id number] AGE: 32 Location: ED Re11/05/13 SEX: F Status: DEP ER SPEC: [id number] [place]: 11/05/13-[address]: Olvin Beasley DO REQ: [id number] RECD: 11/05/13-1307 STATUS: LOY STEELE DR: Bill Hughes MD _ SOURCE: URINE SPDESC: ORDERED: Urine Culture Procedure Result Verified Site Urine Culture Final 11/07/13- 1205 ML Organism 1 NORMAL ROBBY [place] Count 1-10,000 (Few) CFU/ML END OF REPORT * ML=Testing performed at Main Lab DEPARTMENT OF PATHOLOGY, [address] [place] [address] Viktor Best M.D. Director [facility] Permit #[id number] 13 Because ethnic data is not always readily available, this report includes an eGFR for both -Americans and non- Americans. The National Kidney Disease Education Program (NKDEP) does not endorse the use of the MDRD equation for patients that are not between the ages of 18 and 70, are , have extremes of body size, muscle mass, or nutritional status, or are non- or non-. According to the National Kidney Foundation, irrespective of diagnosis, the stage of the disease is based on the level of kidney function: Stage Description GFR(mL/min/1.73 m(2)) 1 Kidney damage with normal or decreased GFR 90 2 Kidney damage with mild decrease in GFR 60-89 3 Moderate decrease in GFR 30-59 4 Severe decrease in GFR 15-29 5 Kidney failure <15 (or dialysis) 14 Acute inflammation: >10.00 15 NOT GOOD CLEAN CATCH 16 Vitamin D deficiency has been defined by the [place] of Medicine and an Endocrine Society practice guideline as a level of serum 25-OH vitamin D less than 20 ng/mL (1,2). The Endocrine Society went on to further define vitamin D insufficiency as a level between 21 and 29 ng/mL (2). 1. IOM ([place] of Medicine). 2010. Dietary reference intakes for calcium and D. [place]: The National Academies Press. 2. Pnachito MF, Porter [place], Klaudia CALDERON, et al. Evaluation, treatment, and prevention of vitamin D deficiency: an Endocrine Society clinical practice guideline. JCEM. 2010; 96(2):1911-30. 17 Negative 0 - 19 Weak Positive 20 - 30 Moderate to Strong Positive >30 18 Negative 0 - 19 Weak Positive 20 - 30 Moderate to Strong Positive >30 19 Negative 0 - 3 Weak Positive 4 - 10 Positive >10 . Tissue Transglutaminase (tTG) has been identified as the endomysial antigen. Studies have demonstr- ated that endomysial IgA antibodies have over 99% specificity for gluten sensitive enteropathy. 20 Negative 0 - 5 Weak Positive 6 - 9 Positive >9 21 result [place]'d 22 result reckd' 23 1 SST Procedures Date Code Description Status 08/12/2017 12699 Pulse Oximetry Completed 08/31/2016 98834290 Mammogram Completed 10/29/2013 35979 Pulse Oximetry Completed 10/29/2013 25385 Nebulizer Treatment Completed 01/03/2012 24633 Vision Test- screening test of visual acuity, Completed quantitative, bila 12/03/2011 93363 Electrocardiogram Complete Completed Encounters Type Date Location Provider Dx Diagnosis Office Visit 11/06/2018 Main Office Brina Crowley M54.5 Low back pain 10:30a MC Arenas Office Visit 10/25/2017 [facility] Office Jessie Sandoval, F33.9 Major depressive 3:30p M.D. disorder, recurrent, unspecified S93.402A Sprain of unspecified ligament of left ankle, init encntr Office Visit 08/12/2017 3:30p [facility] Katya Millan J20.9 Acute bronchitis, Office MC Hernandez unspecified Office Visit 07/22/2017 9:00a [facility] Katya Millan J20.9 Acute bronchitis, Office MC Hernandez unspecified Office Visit 07/06/2017 11:30a [facility] Katya Millan M25.542 Pain in joints of Office MC Hernandez left hand M25.532 Pain in left wrist Office Visit 05/26/2017 2:40p [facility] Office Bela Washington F43.23 Adjustment Alex Servin. 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 J30.9 Allergic rhinitis, unspecified Office Visit 06/29/2016 1:50p [facility] Office Bela Washington J20.9 Acute bronchitis, Doug Servin unspecified Office Visit 02/19/2016 4:45p [facility] Office Mar Good, M54.5 Low back pain Afnp-C K58.9 Irritable bowel syndrome without diarrhea Office Visit 12/26/2015 10:10a Main Office James Hanson K13.29 Other disturbances Doug Canchola of oral epithelium, including tongue E55.9 Vitamin D deficiency, unspecified Office Visit 12/17/2015 [facility] Mar 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 Herpesviral 10:45a Office Latisha, gingivostomatitis and Afnp-C pharyngotonsillitis Office Visit 11/17/2015 Main Office Leslie F41.8 Other specified anxiety 4:15p [place], disorders Afnp-C Office Visit 09/26/2015 [facility] Jessie Sandoval, J01.90 Acute sinusitis, 11:00a Office Doug unspecified R63.5 Abnormal weight gain Office Visit 03/28/2015 3:15p [facility] Office Caitlin 311 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 488.82 Influenza Due To Identified Influenza A Virus Resp Manfestat Office Visit 03/14/2014 1:45p [facility] Office Renetta Stevens, 461.0 Sinusitis Acute [employer]CH [employer] Maxillary Office Visit 02/05/2014 4:40p [facility] Office Russell Donahue M.D. 300.00 Anxiety State Unspec Office Visit 01/01/2014 10:00a [facility] Office James Hanson 599.0 UTI Urinary Doug Canchola Tract Infection Site Not Spec Office Visit 11/13/2013 4:20p [facility] Office Khan A. 789.00 Pain Abdominal Doug Hughes Unspec Site Office Visit 11/08/2013 4:10p [facility] Office Bill Winslow. 789.00 Pain Abdominal Doug Hughes Unspec Site Office Visit 11/06/2013 4:00p [facility] Office Bill A. 789.00 Pain Abdominal Doug Hughes Unspec Site 466.0 Bronchitis Acute Office Visit 10/29/2013 10:00a [facility] Office Caitlin Healy, C[employer]CH CLE[employer]ER 786.2 Cough 466.0 Bronchitis Acute Office Visit 12/08/2012 [facility] Mar Walkerigne, 558.9 Gastroenteritis & 4:00p Office Afnp-C Colitis Noninfectious Other Office Visit 07/03/2012 [facility] Bill Lovelace 296.31 Depressive Disorder 9:40a Office Doug Hughes Major Recurrent Mild 314.00 Attention Deficit Disorder W/O Mention Of Hyperactivity Office Visit 06/16/2012 10:40a [facility] Office Bill Lovelace 314.00 Attention Deficit Doug Hughes Disorder W/O Mention Of Hyperactivity 296.31 Depressive Disorder Major Recurrent Mild Office Visit 06/01/2012 11:15a [facility] Office Renetta Stevens, 461.0 Sinusitis Acute [employer]ER Maxillary Office Visit 01/03/2012 3:30p [facility] Office Marlen Saxena V70.0 Examination Doug Gomez General Medical Routine AT [facility] 789.00 Pain Abdominal Unspec Site 268.9 Vitamin D Deficiency Unspec 780.93 Memory Loss V72.0 Examination Eyes & Vision Office Visit 12/03/2011 3:30p [facility] Office Reyna Dias 786.50 Pain Chest Doug Dominguez Unspec Office Visit 12/26/2009 2:30p Main Office Renetta Stevens, 789.00 Pain Abdominal CUTCH CLE[employer]ER Unspec Site Office Visit 02/26/2009 2:00p [facility] Office Renetta Stevens 783.5 Polydipsia [employer]CH CLE[employer]ER Plan of Treatment 02/06/2019 - Brina Arenas, NPM54.5 Low back painNew Xrays:MRI Lumbar Spine W/O Contrast, Ordered: 02/06/19Comments:Apply heat packs to affected area. Use acetaminophen/ibuprofen/aleve for pain as directed. Avoid heavy lifting. Do katherin stretching but nothing strenuous. Sleep in a bed, avoid couches or recliners. Muscle relaxer: take at night. do not drink alcohol with this medication. Do no drive or operate heavy machinery with this medication due to its sedating effects. Return if condition worsens, fails to improve or if concerning features arise. consider steroid injections - will get MRI, consult with spinal specialistAllComments:Medication Management Patient Understands medications he 's taking? Yes No Are there Barriers to Adherence? Yes No Has the patient been asked about herbal supplements and therapies, andOTC meds? Yes No Care Plan1. Patient has been queried about patient's goals/preferences and functional/lifestyle goals at relevant visits. If relevant, describe: na2. Treatment goals as explained to the patient: above3. Are there barriers to meeting treatment goals? Yes No If Yes, please describe:4. Self-Management goals as described to the patient: Yes NoAs always, we strongly encourage a healthy diet and making physical activity a part of your every day life. If you have questions about how or where to start, please contact the office.
[2019-02-14 15:29] VITALS: BP 134/73
[2019-02-14] MEDS ORDERED: Ketorolac *IM* INJ* 60 MG/2 ML VIAL IM ONE (15:48)
[2019-02-14] MEDS ORDERED: HYDROcodone/ACETAMIN 5-325 MG* 1 TAB PO ONE (15:49)
--- NOTE | 2019-02-14 16:06 | UC ---
Back Pain HPI - HPI Summary HPI Summary: 38-year-old woman comes in with a chief complaint of low back pain. She's been having chronic back pain for several months. The worst in her low back and radiates around the left towards the left upper leg. She is being evaluated by her primary care physician and she just had an MRI on February 09, 2019. At this stage there looking at pain clinic and neurosurgical referral. Pain is worse with twisting turning bending. Patient this morning took ibuprofen and acetaminophen and tramadol with minimal relief of the pain. Usually the same medicines to help with the pain. Denies any burning with urination or feeling sick with fevers. Ever since the back pain started patient's noticed that she has to urinate more frequently and has been more difficult time controlling the urine. Patient has seen a specialist entertaining the idea of interstitial cystitis. No difficulty controlling stool. She does describe when the pains is worse she gets a numb feeling going from her back to her left upper leg. - History of Current Complaint Chief Complaint: UCBackPain Stated Complaint: BACK PAIN Time Seen by Provider: 02/14/19 15:22 Hx Last Menstrual Period: 02/13/19 Pain Intensity: 9 - Allergies/Home Medications Allergies/Adverse Reactions: Allergies Allergy/AdvReac Type Severity Reaction Status Date / Time clarithromycin [From Biaxin] AdvReac Abdominal Verified 02/14/19 15:39 Pain Home Medications: Home Medications Acetaminophen [Tylenol Extra Strength] 1,000 mg PO DAILY 02/14/19 [History Confirmed 02/14/19] Cholecalciferol (Vitamin D3) [Vitamin D3] 1,000 unit PO DAILY 02/14/19 [History Confirmed 02/14/19] Cyanocobalamin TAB* [Vitamin B12 TAB*] 500 mcg PO DAILY 02/14/19 [History Confirmed 02/14/19] LORazepam TAB(*) [Ativan 0.5 MG TAB (*)] 0.5 mg PO BEDTIME PRN 02/14/19 [ History Confirmed 02/14/19] Lactobacillus Acidophilus [Probiotic] 1 each PO DAILY 02/14/19 [History Confirmed 02/14/19] Uribel BID PRN 02/14/19 [History] traMADol TAB* [Ultram*] 50 mg PO Q6HR PRN 02/14/19 [History Confirmed 07/17/19] PMH/Surg Hx/FS Hx/Imm Hx Previously Healthy: Yes - Surgical History Surgical History: Yes Surgery Procedure, Year, and Place: LEEP; - Family History Known Family History: Positive: Cardiac Disease - Social History Alcohol Use: Occasionally Substance Use Type: None Smoking Status (MU): Never Smoked Tobacco Have You Smoked in the Last Year: No - Immunization History Most Recent Tetanus Shot: UTD Review of Systems All Other Systems Reviewed And Are Negative: Yes Constitutional: Positive: Negative Skin: Positive: Negative Eyes: Positive: Negative ENT: Positive: Negative Respiratory: Positive: Negative Cardiovascular: Positive: Negative Gastrointestinal: Positive: Negative Genitourinary: Positive: Frequency Motor: Positive: Other - SEE HPI Neurovascular: Positive: Other - SEE HPI Musculoskeletal: Positive: Other: - SEE HPI Neurological: Positive: Other - SEE HPI Psychological: Positive: Negative Is Patient Immunocompromised?: No Physical Exam Triage Information Reviewed: Yes Appearance: Well-Appearing, Well-Nourished, Pain Distress - MILD; WORSE WITH ROM Vital Signs: Initial Vital Signs Temp 100.2 F 02/14/19 15:22 Pulse 70 02/14/19 15:22 Resp 16 02/14/19 15:22 BP 134/73 02/14/19 15:22 Pulse Ox 100 02/14/19 15:22 Vital Signs Reviewed: Yes Eye Exam: Normal Eyes: Positive: Conjunctiva Clear Neck: Positive: Supple Respiratory: Positive: No respiratory distress Musculoskeletal: Positive: Strength Intact, ROM Intact Neurological: Positive: Alert, Muscle Tone Normal Psychological: Positive: Normal Response To Family, Age Appropriate Behavior Skin Exam: Normal Back Pain Course/Dx - Course Course Of Treatment: In clinic patient received Toradol 60 mg IM and Florence 5 mg by mouth. Plan will be to follow-up with her primary care doctor. I let her know that if she had any weakness or numbness or difficulty controlling urine or bowel it's changing immediately evaluated again right away. Temperature here was 100.2. only trace blood in the urine no signs of urinary tract infection otherwise. No other signs of infection. Patient feels well. - Differential Dx/Diagnosis Provider Diagnosis: Low back pain, Lumbar radiculopathy Discharge - Sign-Out/Discharge Documenting (check all that apply): Patient Departure All imaging exams completed and their final reports reviewed: No Studies - Discharge Plan Condition: Stable Disposition: HOME Prescriptions: HYDROcodone/ACETAMIN 5-325 MG* [Florence 5-325 TAB*] 1 tab PO Q4H PRN #20 tab MDD 6 PRN Reason: Pain methylPREDNISolone [Medrol Dosepak 4 MG*] 0 mg PO .SEE MARCIA INSTRUCTION #1 marcia Patient Education Materials: Lower Back Exercises (ED), Acute Low Back Pain (ED ), Lumbar Radiculopathy (ED) Referrals: Jessie Sandoval MD [Primary Care Provider] - [facility] [Provider Group] Juan Martínez MD [Medical Doctor] - Additional Instructions: FOLLOW UP WITH YOUR DOCTOR. FOLLOW UP WITH YOUR PRIMARY CARE DOCTOR, SPORTS MEDICINE, PAIN MEDICINE AND/OR NEUROSURGERY. GET REEVALUATED SOONER IF WORSE OR ANY QUESTIONS OR CONCERNS. - Billing Disposition and Condition Condition: STABLE Disposition: Home
== END 2019-02-14 16:40 | disposition home or self-care (01) ==
LOC: UCCORT 14:59
DX: M54.16 Radiculopathy, lumbar region (principal)
CPT/HCPCS: 81003; 96372; 99211; G0463; J1885